=== PATIENT | female | born 1960 | race Caucasian/White ===

== ENCOUNTER 2019-06-28 06:17 | Outpatient (CLI) | payer OTHER ==
[2019-06-29 11:21] LABS: SARS-CoV-2 MS2 Positive; SARS-CoV-2 N Gene Negative; SARS-CoV-2 S Gene Negative; SARS-CoV-2 orf1ab Negative
--- NOTE | 2019-06-29 22:10 | EKG ---
Test Reason : Blood Pressure : / mmHG Vent. Rate : 060 BPM Atrial Rate : 060 BPM P-R Int : 148 ms QRS Dur : 090 ms QT Int : 428 ms P-R-T Axes : 071 062 058 degrees QTc Int : 428 ms Normal sinus rhythm Normal ECG No previous ECGs available Confirmed by Ludivina CORTES ([id number]) on 06/29/2019 10:09:50 PM Referred By: DORYS Confirmed By:Ludivina CORTES
== END 2019-06-28 06:18 | disposition home or self-care (01) ==
LOC: LABBT 06:17
PROVIDERS: ATTEND Neurological Surgery
DX: Z01.818 Encounter for other preprocedural examination (principal); Z11.59 Encounter for screening for other viral diseases; M43.16 Spondylolisthesis, lumbar region; M54.16 Radiculopathy, lumbar region
CPT/HCPCS: 87635; 93005; 93010; U0003

== ENCOUNTER 2019-07-01 07:54 | Observation (INO) | payer OTHER ==
--- NOTE | 2019-06-30 13:25 | HP ---
HISTORY OF PRESENT ILLNESS: Ms. Yung presents today to our clinic with left leg pain and numbness that is most consistent with an L5 radiculopathy. She has an MRI scan and x-ray that she brought with her, which reveals scoliosis and spondylolisthesis at L5-S1 with severe foraminal narrowing on the left symptoms. She has had two prior opinions on this and hopes to seek a third. PAST MEDICAL HISTORY: Significant for chronic pain syndrome and hypertension. CURRENT MEDICATIONS: Lisinopril and [id number]-mtgfddo vitamins. ALLERGIES: NO KNOWN DRUG ALLERGIES. PAST SURGICAL HISTORY: and rotator cuff repair. PHYSICAL EXAMINATION: NEUROLOGIC: The patient has an antalgic gait, but otherwise has 5/5 strength in all movements. She does have a positive left straight leg raise. ASSESSMENT: Lumbar spondylolisthesis and radiculopathy. PLAN: Dr. Muller met with the patient, reviewed imaging, advocated for an L5-S1 facetectomy and fusion. He explained to the patient the risks, benefits, and alternatives to the procedure. The patient expressed understanding and elected to moved forward with surgery as discussed. I do believe that the patient is mentally competent and capable of making medical decisions for herself. We will move forward with surgery as planned. Job ID: [id number]
[2019-07-01] MEDS ORDERED: Scopolamine 1.5 mg/72 hour Patch ONE (09:19)
[2019-07-01] MEDS ORDERED: EPINEPHrine 1 MG/ML AMP ONE (09:55)
[2019-07-01] MEDS ORDERED: Bupivacaine PF 0.5% 30 ML VIAL ONE (09:55)
[2019-07-01] MEDS ORDERED: Fentanyl 100 MCG/2 ML VIAL ONE (10:01)
--- NOTE | 2019-07-01 13:06 | OP ---
DATE OF PROCEDURE: 07/01/2019 [employer] MANAGER: Nicholas Lau PA-C INDICATION: Pain. DIAGNOSIS: Spondylolisthesis with low back pain and lumbar radiculopathy. PROCEDURES PERFORMED: Bilateral L5 facetectomy, posterolateral instrumented fusion placement of allograft, and placement of autograft. ANESTHESIA: General. DESCRIPTION OF PROCEDURE: The patient brought into the operating room and placed under general anesthesia. She was flipped from the supine to prone position on the operating room table. A linear incision was planned at the L5-S1 segment. After prepping and draping and after an appropriate preoperative pause, the incision was created. The soft tissues were swept away from midline. Self-retaining retractors were placed. Facet joints at L5-S1 removed bilaterally in order to decompress the descending and exiting nerve roots. Pedicle screws were then placed in both pedicles bilaterally at L5 and S1 with the aid of C-arm fluoroscopy. An intraoperative 3D CT scan was performed to confirm placement of hardware. There was a pedicle breach on the right L5 pedicle that I did not believe would hold the pedicle screw long-term. The neural structures around the pedicle were intact and in good shape. As a result, I did remove the pedicle screws on the right at L5 and S1. A evelyn was then placed across the screw head on the left at L5-S1 and final tightened under slight degree of distraction. Allograft and autograft material were then placed in the lateral confines of the instrumentation construct. The wound was then irrigated. Hemostasis was maintained throughout. The wound was then closed in anatomic layers and a pressure dressing was applied. There were no known procedural complications. Job ID: [id number]
[2019-07-01] MEDS ORDERED: Sodium Chloride For Inhalation 0.9% 3 ML NEB ONE (13:34)
[2019-07-01] MEDS ORDERED: Lidocaine 2% 10 ML INJ ONE (13:53)
[2019-07-01] MEDS ORDERED: Ondansetron PF 4 MG/2 ML Vial ONE (14:13)
[2019-07-01] MEDS ORDERED: PHENYLEPHRINE-NS 100 MCG/ML 10 ML SYRINGE ONE (14:13)
[2019-07-01] MEDS ORDERED: PROPOFOL 200 MG/20 ML VIAL ONE (14:13)
[2019-07-01] MEDS ORDERED: Lidocaine 1% PF 5 ML VIAL ONE (14:13)
[2019-07-01] MEDS ORDERED: Rocuronium Bromide 10 MG/ML (10ML VIAL) ONE (14:13)
[2019-07-01] MEDS ORDERED: Dexamethasone 20 MG/5 ML VIAL ONE (14:13)
[2019-07-01] MEDS ORDERED: Ketorolac Tromethamine 30 MG/ML VIAL ONE (14:13)
[2019-07-01] MEDS ORDERED: Glycopyrrolate 0.2 MG/ML 5 ML SYRINGE ONE (14:13)
[2019-07-01] MEDS ORDERED: Proparacaine 0.5% Opth 15 ML BOT EA EYE SCH (14:15)
[2019-07-01] MEDS ORDERED: Tobramycin 0.3% Ophth Oint 3.5 GM TUBE EA EYE SCH (14:15)
[2019-07-01] MEDS ORDERED: Morphine 4 MG/ML VIAL SLOW IVP PRN (21:33)
[2019-07-01] MEDS ORDERED: diphenhydrAMINE 25 MG CAP PO PRN (21:33)
[2019-07-01] MEDS ORDERED: Milk Of Magnesia 30 ML UDCUP PO PRN (21:33)
[2019-07-01] MEDS ORDERED: Cyclobenzaprine 10 MG TAB PO PRN (21:33)
[2019-07-01] MEDS ORDERED: Acetaminophen 325 MG TAB PO PRN (21:33)
[2019-07-01] MEDS ORDERED: HYDROcodone/Acetaminophen 7.5/325 mg Tablet PO PRN ×2 (21:33)
[2019-07-01] MEDS ORDERED: Acetaminophen 650 MG Suppository PR PRN (21:33)
[2019-07-01] MEDS ORDERED: Morphine 2 MG/ML SYRINGE SLOW IVP PRN (21:33)
[2019-07-01] MEDS ORDERED: Bisacodyl 10 MG SUPP PR PRN (21:33)
[2019-07-01] MEDS ORDERED: Mag-Al 1200 mg/1200 mg/30 ML UDCUP PO PRN (21:33)
[2019-07-01] MEDS ORDERED: diphenhydrAMINE 50 MG/ML VIAL IVP PRN (21:33)
[2019-07-01] MEDS ORDERED: Ondansetron PF 4 MG/2 ML Vial IM PRN (21:34)
[2019-07-01] MEDS: Sodium Chloride 0.9% 1,000 ML IV SCH (22:13)
[2019-07-01] MEDS: CEFAZOLIN 2 GM in Premix Bag 1 BAG IVPB SCH (22:13)
[2019-07-01 23:05] VITALS: BMI 19.8
[2019-07-02] MEDS: CEFAZOLIN 2 GM in Premix Bag 1 BAG IVPB SCH (05:14)
[2019-07-02 08:00] VITALS: TEMP 97.9
[2019-07-02 08:12] VITALS: BP 95/56
[2019-07-02] MEDS: Sodium Chloride 0.9% 1,000 ML IV SCH (08:19)
[2019-07-02] MEDS ORDERED: Lisinopril 10 MG TAB PO SCH (09:00)
--- NOTE | 2019-07-02 10:55 | DIS ---
DATE OF ADMISSION: 07/01/2019 DATE OF DISCHARGE: 07/02/2019 Ms. Yung is on postop day #1, following lumbar fusion. She is admitted overnight for corneal abrasion and severe eye pain for evaluation. I do not see any notes where this evaluation took place. However, as of this morning, she states that 90% of her eye discomforts have resolved on their own. She has minimal back pain, which is a surprise to me given the extensive surgery that was performed. However, she is ambulating well and tolerating transitions in and out of bed, drain output tapered overnight and actually was pulled out accidentally while the patient was moving bed it appears. Wound is well approximated and no drainage is present. We will discharge her today. ADMISSION DIAGNOSES: Status post lumbar fusion and corneal abrasion. DISCHARGE DIAGNOSIS: Status post lumbar fusion and corneal abrasion. Hospital course was uncomplicated. No consultations were ordered. The patient was discharged home in good condition with outpatient followup planned in 2 weeks. Job ID: [id number]
[2019-07-02] MEDS ORDERED: Progesterone,Micronized 100 MG CAP PO SCH (21:00)
== END 2019-07-02 10:55 | disposition home or self-care (01) ==
LOC: SDC 07:54 → SURG A 20:43
PROVIDERS: ADMIT Neurological Surgery; ATTEND Neurological Surgery
PROC: 0SG0071 Fusion of Lumbar Vertebral Joint with Autologous Tissue Substitute, Posterior Approach, Posterior Column, Open Approach (ICD-10-PCS; principal; 2019-07-02)
DX: M43.16 Spondylolisthesis, lumbar region (principal); M54.16 Radiculopathy, lumbar region; M41.9 Scoliosis, unspecified; G89.4 Chronic pain syndrome; I10 Essential (primary) hypertension; E03.9 Hypothyroidism, unspecified; Z79.899 Other long term (current) drug therapy
CPT/HCPCS: 76000; 96361; 96365; 96366; C1713; G0378; J0171; J0690; J1100; J1885; J2001; J2405; J2704; J3010; J7620; S0020

== ENCOUNTER 2020-04-27 16:01 | Outpatient (CLI) | payer BC ==
[2020-04-28 03:55] LABS: SARS-CoV-2 PCR by NAA Not Detected (NotDetected)
== END 2020-04-27 16:02 | disposition home or self-care (01) ==
LOC: LABBT 16:01
PROVIDERS: ATTEND Neurological Surgery
DX: Z01.818 Encounter for other preprocedural examination (principal); Z20.822 Contact with and (suspected) exposure to COVID-19
CPT/HCPCS: 87635; 93005; 93010; U0003; U0005

== ENCOUNTER 2020-05-02 06:55 | Day surgery (SDC) | payer BC ==
[2020-05-01 09:46] VITALS: BMI 20.9
[2020-05-02] MEDS ORDERED: Scopolamine 1.5 mg/72 hour Patch ONE (07:55)
[2020-05-02] MEDS ORDERED: Bupivacaine PF 0.5% 30 ML VIAL ONE (08:24)
[2020-05-02] MEDS ORDERED: EPINEPHrine 1 MG/ML AMP ONE (08:24)
[2020-05-02] MEDS ORDERED: Fentanyl 100 MCG/2 ML VIAL ONE (08:49)
[2020-05-02] MEDS ORDERED: Midazolam HCl 2 mg/2 ml Vial ONE (08:59)
[2020-05-02] MEDS ORDERED: Dexamethasone 20 MG/5 ML VIAL ONE (09:11)
[2020-05-02] MEDS ORDERED: Ketorolac Tromethamine 30 MG/ML VIAL ONE (09:11)
[2020-05-02] MEDS ORDERED: Ondansetron PF 4 MG/2 ML Vial ONE (09:11)
[2020-05-02] MEDS ORDERED: ePHEDrine 50 MG/ML VIAL ONE (09:11)
[2020-05-02] MEDS ORDERED: Rocuronium Bromide 10 MG/ML (10ML VIAL) ONE (09:11)
[2020-05-02] MEDS ORDERED: PROPOFOL 200 MG/20 ML VIAL ONE (09:11)
[2020-05-02] MEDS ORDERED: Lidocaine 1% PF 5 ML VIAL ONE (09:11)
[2020-05-02] MEDS ORDERED: Glycopyrrolate 0.2 MG/ML 5 ML SYRINGE ONE (09:11)
[2020-05-02] MEDS ORDERED: Metoclopramide HCl 10 MG/2 ML VIAL ONE (09:11)
== END 2020-05-02 12:55 | disposition home or self-care (01) ==
LOC: SDC 06:55
PROVIDERS: ATTEND Neurological Surgery
PROC: 0QP005Z Removal of External Fixation Device from Lumbar Vertebra, Open Approach (ICD-10-PCS; principal; 2020-05-02)
DX: T84.226A Displacement of internal fixation device of vertebrae, initial encounter (principal); M48.061 Spinal stenosis, lumbar region without neurogenic claudication; G89.4 Chronic pain syndrome; I10 Essential (primary) hypertension; Z79.899 Other long term (current) drug therapy
CPT/HCPCS: 76000; J0171; J0690; J1100; J1885; J2250; J2405; J2704; J2765; J3010; J3490; S0020